=== PATIENT | female | born 2000 | race Two or more races ===

== ENCOUNTER 2023-09-02 17:35 | Observation (INO) | payer MEDICAID ==
[~2023-09-02] VITALS: Ht 160 cm; Wt 97.5 kg
== END 2023-09-02 21:53 | disposition home or self-care (01) ==
LOC: LDRP 17:35
PROVIDERS: ADMIT Obstetrics & Gynecology; ATTEND Obstetrics & Gynecology
DX: O62.9 Abnormality of forces of labor, unspecified (principal); Z3A.39 39 weeks gestation of pregnancy
CPT/HCPCS: 59025; 81002; 94760; G0378

== ENCOUNTER 2023-09-03 03:47 | Inpatient (IN) | payer MEDICAID ==
[~2023-09-03] VITALS: Ht 157.5 cm; Wt 66.7 kg
[2023-09-03] MEDS ORDERED: LIDOCAINE 2%HCL (LOCAL ANESTH.) INJ 20ML MDV IJ PRN (04:30)
[2023-09-03] MEDS ORDERED: BUTORPHANOL TARTRATE 2 MG/1 ML VIAL IV PRN ×2 (04:30)
[2023-09-03 05:27] LABS: Amphetamine Screen, Urine Neg (NEGATIVE); Barbiturate Scree,Urine Neg (NEGATIVE); Benzodiazephine Screen, Urine Neg (NEGATIVE); Cannabinoid Screen, Urine Neg (NEGATIVE); Cocaine Screen, Urine Neg (NEGATIVE); Opiate Scree,Urine Neg (NEGATIVE); Phencyclidine Screen, Urine Neg (NEGATIVE)
[2023-09-03 05:30] LABS: Urine Bacteria FEW /hpf (None Seen); Urine Blood 1+ /uL (Negative); Urine Clarity Turbid (Clear); Urine Color Light-Yellow (Yellow); Urine Mucus FEW (None Seen); Urine Protein, UAD TRACE (Negative); Urine Specific Gravity 1.016 (1.001-1.035); Urine Urobilinogen Normal (Negative); Urine WBC 22 /hpf (0 - 5); Urine pH 6.5 (5.0-9.0)
[2023-09-03] MEDS: WITCH HAZEL-GLYCERIN PAD TOP PRN (05:38)
[2023-09-03] MEDS: LACTATED RINGER'S 1,000 ML IV SCH (05:38)
[2023-09-03] MEDS: DERMOPLAST 60ML BOTTLE TOP PRN (05:38)
[2023-09-03] MEDS: PHISODERM TOP SOLN 240ML BTL TOP PRN (05:38)
[2023-09-03] MEDS: ROPIVACAINE HCL 200 ML ONE (05:42)
[2023-09-03 06:00] LABS: Fern Testing Positive
[2023-09-03 06:17] LABS: Basophils # (auto) 0 10 ^3/uL (0-0.2); Basophils % (auto) 0.3 % (0.0-2.0); Eosinophils # (auto) 0.1 10 ^3/uL (0-0.8); Eosinophils % (auto) 0.5 % (0.0-7.0); Hematocrit 35.3 % (36.0-46.0); Hemoglobin 11.9 g/dL (12.2-16.2); INR 0.88 (0.9-1.15); Lymphocytes # (auto) 1.9 10 ^3/uL (0.4-5.4); Mean Corpuscular Hemoglobin 29.8 pg (28.0-32.0); Mean Corpuscular Hgb Conc. 33.8 g/dL (32.0-36.0); Monocytes # (auto) 0.9 10 ^3/uL (0-1.3); Monocytes % (auto) 8.1 % (0.0-12.0); Neutrophils # (auto) 8.5 10 ^3/uL (1.6-8.6); Neutrophils % (auto) 74.1 % (37.0-80.0); Partial Thromboplastin Time 25.8 SEC (24.5-34.5); Prothrombin Time 9.4 sec (9.3-11.8); Red Blood Cells 4.01 10^6/uL (4.0-5.20); Red Cell Distribution Width 14.1 % (11.8-14.3); White Blood Cell 11.4 10^3/uL (4.4-10.8)
[2023-09-03 06:37] LABS: Albumin 3.6 g/dL (3.2-4.8); Alkaline Phosphatase 252 U/L (46-116); Anion Gap 9 (5-15); BUN/Creatinine Ratio 10.9 (10.0-20.0); Blood Urea Nitrogen 6 mg/dL (9-23); Calcium 9.3 mg/dL (8.7-10.4); Carbon Dioxide 20 mmol/L (20-30); Chloride 107 mmol/L (98-107); Glucose 92 mg/dL (74-106); Potassium 3.5 mmol/L (3.5-5.1); Sodium 136 mmol/L (136-145)
[2023-09-03 06:38] LABS: Bilirubin, Total 0.4 mg/dL (0.2-1.0); Total Protein 6.2 g/dL (5.7-8.2)
[2023-09-03 06:45] LABS: Alanine Aminotransferase 9 U/L (7-40)
[2023-09-03 07:08] LABS: Aspartate Aminotransferase 8 U/L (13-40)
[2023-09-03] MEDS: LACT. RINGERS/OXYTOCIN 20UNITS 500 ML IV ONE ×2 (09:14→09:15)
[2023-09-03] MEDS ORDERED: ACETAMINOPHEN 325 MG TAB PO PRN (09:15)
[2023-09-03] MEDS ORDERED: ONDANSETRON ODT 4 MG TAB PO PRN (09:15)
[2023-09-03 11:30] VITALS: BP 117/60; PULSE 105; RESP 18; TEMP 98.9; O2SAT 98
[2023-09-03 15:15] VITALS: BP 109/61; PULSE 89; RESP 16; TEMP 98; O2SAT 99
[2023-09-03] MEDS: IBUPROFEN 600 MG TAB PO PRN (18:01)
[2023-09-03 19:00] VITALS: BP 114/70; PULSE 92; RESP 17; TEMP 98.4; O2SAT 99
[2023-09-03] MEDS: DOCUSATE SOD 100 MG CAP PO SCH (22:34)
[2023-09-03 23:00] VITALS: BP 111/66; PULSE 81; RESP 17; TEMP 98.2; O2SAT 98
[2023-09-04 03:00] VITALS: BP 104/69; PULSE 88; RESP 16; TEMP 98.2; O2SAT 99
[2023-09-04] MEDS ORDERED: IBU600T PO (06:32)
[2023-09-04 07:15] VITALS: BP 110/59; PULSE 69; RESP 20; TEMP 97.7; O2SAT 95
[2023-09-04 08:07] LABS: RPR Non Reactive (Non Reactive)
[2023-09-06 20:06] LABS: Treponema pallidum Ab (FTA-Ab) Non Reactive (Non Reactive)
== END 2023-09-04 10:30 | disposition home or self-care (01) | DRG 560 ==
LOC: LDRP 03:47 → OBSVTOIN 04:12 → LDRP 05:00
PROVIDERS: ADMIT Obstetrics & Gynecology; ATTEND Obstetrics & Gynecology
PROC: 10E0XZZ Delivery of Products of Conception, External Approach (ICD-10-PCS; principal; 2023-09-03)
PROC: 0HQ9XZZ Repair Perineum Skin, External Approach (ICD-10-PCS; 2023-09-03)
PROC: 3E0R3BZ Introduction of Anesthetic Agent into Spinal Canal, Percutaneous Approach (ICD-10-PCS; 2023-09-03)
PROC: 00HU33Z Insertion of Infusion Device into Spinal Canal, Percutaneous Approach (ICD-10-PCS; 2023-09-03)
DX: O42.92 Full-term premature rupture of membranes, unspecified as to length of time between rupture and onset of labor (principal); Z37.0 Single live birth; O70.0 First degree perineal laceration during delivery; O77.0 Labor and delivery complicated by meconium in amniotic fluid; Z3A.39 39 weeks gestation of pregnancy
CPT/HCPCS: 36415; 59025; 59409; 62282; 80053; 80307; 81001; 84112; 85025; 85610; 85730; 86592; 86803; 86850; 86900; 86901; 94760; 94762; 96360; 96361; 96365; 96366; G0378; J2590